=== PATIENT | female | born 1995 | race Caucasian/White ===

== ENCOUNTER 2017-06-21 10:19 | Inpatient (IN) | payer OTHER ==
[~2017-06-21] VITALS: Ht 170.2 cm; Wt 76.0 kg
[2017-06-21] MEDS ORDERED: DIAZEPAM 5 MG TABLET ONE (10:47)
[2017-06-21] MEDS ORDERED: KETOROLAC 30 MG/1 ML ONE (10:48)
[2017-06-21] MEDS ORDERED: DIAZEPAM 5 MG TABLET PO ONE (11:00)
[2017-06-21] MEDS ORDERED: KETOROLAC 30 MG/1 ML IM ONE (11:00)
[2017-06-21 11:05] LABS: HCG UR OBC PASS
[2017-06-21] MEDS ORDERED: ONDANSETRON 2MG/ML, 2ML ONE (11:37)
[2017-06-21] MEDS ORDERED: CEFTRIAXONE PMX 1GM/50ML 50 ML ONE (11:38)
[2017-06-21 11:46] LABS: HEMATOCRIT 41.4 % (34.6-47.8); HEMOGLOBIN 13.8 g/dL (11.7-16.4); WHITE BLOOD COUNT 18.9 x10^3/uL (3.4-10)
[2017-06-21 11:57] LABS: ASPARTATE AMINO TRANSFERASE 12 U/L (15-37); BLOOD UREA NITROGEN 9 mg/dL (7-18)
[2017-06-21] MEDS ORDERED: SODIUM CHLORIDE FLUSH 10ML SYR IVF ONE (12:00)
[2017-06-21] MEDS ORDERED: SODIUM CHLORIDE 0.9% 1,000ML IVBOLUS ONE (12:00)
[2017-06-21] MEDS ORDERED: ONDANSETRON 2MG/ML, 2ML IVPush ONE (12:00)
[2017-06-21] MEDS ORDERED: CEFTRIAXONE PMX 1GM/50ML 50 ML IVPB ONE (12:00)
[2017-06-21] MEDS ORDERED: ACETAMINOPHEN 500 MG TABLET ONE (12:14)
[2017-06-21] MEDS ORDERED: ACETAMINOPHEN 500 MG TABLET PO ONE (12:30)
[2017-06-21] MEDS ORDERED: ONDANSETRON 2MG/ML, 2ML IVPush PRN (13:00)
[2017-06-21] MEDS ORDERED: ACETAMINOPHEN 325 MG TABLET PO PRN (13:00)
[2017-06-21] MEDS: SODIUM CHLORIDE 0.9% 1,000 ML IV SCH (14:12)
[2017-06-21] MEDS: ENOXAPARIN 40 MG/0.4 ML SQ SCH (14:15)
[2017-06-21] MEDS ORDERED: HYDROcodone/APAP 5/325 TABLET ONE (16:03)
[2017-06-21] MEDS: HYDROcodone/APAP 5/325 TABLET PO PRN ×2 (16:04→22:39)
[2017-06-21 19:53] VITALS: BP 105/69
[2017-06-21] MEDS: FAMOTIDINE 20 MG TABLET PO SCH (21:18)
[2017-06-22] MEDS: SODIUM CHLORIDE 0.9% 1,000 ML IV SCH ×3 (00:01→17:12)
[2017-06-22] MEDS: ACETAMINOPHEN 325 MG TABLET PO PRN ×2 (00:04→07:32)
[2017-06-22 01:06] VITALS: BP 104/70
[2017-06-22 07:01] VITALS: BP 128/83
[2017-06-22] MEDS: HYDROmorphone 1 MG/ML, 1ML IV PRN ×2 (07:40→17:12)
[2017-06-22] MEDS: FAMOTIDINE 20 MG TABLET PO SCH ×2 (09:06→19:26)
[2017-06-22] MEDS: CEFTRIAXONE PMX 1GM/50ML 50 ML IV SCH (12:16)
[2017-06-22 13:33] VITALS: BP 109/73
[2017-06-22] MEDS: ENOXAPARIN 40 MG/0.4 ML SQ SCH (13:57)
[2017-06-22 18:54] VITALS: BP 106/69
[2017-06-22] MEDS: HYDROcodone/APAP 5/325 TABLET PO PRN (23:10)
[2017-06-23] MEDS: SODIUM CHLORIDE 0.9% 1,000 ML IV SCH ×3 (00:56→16:44)
[2017-06-23 01:01] VITALS: BP 104/67
[2017-06-23 06:08] LABS: BLOOD UREA NITROGEN 3 mg/dL (7-18)
[2017-06-23 06:09] LABS: HEMATOCRIT 35.2 % (34.6-47.8); HEMOGLOBIN 11.9 g/dL (11.7-16.4); WHITE BLOOD COUNT 10.5 x10^3/uL (3.4-10)
[2017-06-23 07:15] VITALS: BP 117/72
[2017-06-23] MEDS: FAMOTIDINE 20 MG TABLET PO SCH ×2 (08:41→19:17)
[2017-06-23] MEDS: HYDROcodone/APAP 5/325 TABLET PO PRN ×2 (08:44→19:17)
[2017-06-23] MEDS: CEFTRIAXONE PMX 1GM/50ML 50 ML IV SCH (12:17)
[2017-06-23 13:57] VITALS: BP 119/73
[2017-06-23] MEDS: ENOXAPARIN 40 MG/0.4 ML SQ SCH (14:09)
[2017-06-23] MEDS ORDERED: POTASSIUM CHLORIDE 20 MEQ TAB.ER.PRT PO ONE (17:00)
[2017-06-23] MEDS ORDERED: POTASSIUM CHLORIDE 10 MEQ TABLET.ER ONE (17:35)
[2017-06-23 19:49] VITALS: BP 118/74
[2017-06-24] MEDS: SODIUM CHLORIDE 0.9% 1,000 ML IV SCH ×3 (00:38→16:30)
[2017-06-24 01:23] VITALS: BP 111/71
[2017-06-24 06:05] LABS: HEMATOCRIT 36.9 % (34.6-47.8); HEMOGLOBIN 12.6 g/dL (11.7-16.4); WHITE BLOOD COUNT 8.2 x10^3/uL (3.4-10)
[2017-06-24 06:09] LABS: BLOOD UREA NITROGEN 3 mg/dL (7-18)
[2017-06-24 08:00] VITALS: BP 101/69
[2017-06-24] MEDS: CEFTRIAXONE PMX 1GM/50ML 50 ML IV SCH (12:07)
[2017-06-24 13:57] VITALS: BP 121/76
[2017-06-24] MEDS: ENOXAPARIN 40 MG/0.4 ML SQ SCH (14:00)
[2017-06-24] MEDS ORDERED: HYDR-3240 PO (16:17)
[2017-06-24] MEDS ORDERED: LACT1CAP24 PO (16:17)
[2017-06-24] MEDS ORDERED: CEFD300C37 PO (16:17)
== END 2017-06-24 18:08 | disposition home or self-care (01) | DRG 872 ==
LOC: ED 10:46 → EDIP 12:15 → 3NE 13:38
PROVIDERS: ADMIT Internal Medicine; ATTEND Internal Medicine
DX: A41.9 Sepsis, unspecified organism (principal); N10 Acute pyelonephritis; B96.20 Unspecified Escherichia coli [E. coli] as the cause of diseases classified elsewhere; E87.6 Hypokalemia; R30.0 Dysuria; M54.5 Low back pain; Z88.2 Allergy status to sulfonamides
CPT/HCPCS: 36415; 72110; 80048; 80053; 81001; 81025; 82040; 83605; 83690; 83735; 85025; 87040; 87077; 87086; 87186; 96365; 96372; 96375; J0696; J1170; J1650; J1885; J2405; J7030